=== PATIENT | female | born 1985 | race Caucasian/White ===

== ENCOUNTER 2018-12-14 08:30 | Emergency (ER) | payer MEDICAID | END 2018-12-14 09:58 | disposition home or self-care (01) | LOC: FTE 08:30 | DX: O26.891 Other specified pregnancy related conditions, first trimester (principal); R10.2 Pelvic and perineal pain; O99.89 Other specified diseases and conditions complicating pregnancy, childbirth and the puerperium; M25.571 Pain in right ankle and joints of right foot; Z3A.08 8 weeks gestation of pregnancy | CPT/HCPCS: 99282 ==

== ENCOUNTER 2019-07-30 21:23 | Inpatient (IN) | payer MEDICAID ==
[2019-07-30] MEDS ORDERED: OXYTOCIN 30 UNITS/LR 500 ML IV (23:00)
[2019-07-30] MEDS ORDERED: CARBOPROST 250 MCG INJ IM (23:00)
[2019-07-30] MEDS ORDERED: METHYLERGONOVINE 0.2 MG INJ IM (23:00)
[2019-07-30] MEDS ORDERED: MISOPROSTOL 200 MCG TAB PR (23:00)
[2019-07-30] MEDS: TERBUTALINE 1 MG/ML INJ SC (23:31)
[2019-07-30] MEDS: LACTATED RINGER'S 1,000 ML IV (23:47)
[2019-07-30 23:50] LABS: ADD MAN DIFF? NO
[2019-07-30 23:51] LABS: BASOPHILS % 0.2 % (0.0-2.0); EOSINOPHILS # 0.3 10^3/ul (0.0-0.5); EOSINOPHILS % 2.1 % (0.0-7.0); HEMATOCRIT 34.8 % (37.0-47.0); HEMOGLOBIN 11.9 g/dl (12.0-16.0); LYMPHOCYTES # 1.3 10^3/ul (0.8-2.9); LYMPHOCYTES % 10.6 % (15.0-51.0); MEAN CORPUSCULAR HEMOGLOBIN 31.2 pg (29.0-33.0); MEAN CORPUSCULAR HGB CONC 34.2 g/dl (32.0-37.0); MEAN CORPUSCULAR VOLUME 91.3 fl (82.0-101.0); MEAN PLATELET VOLUME 11.4 fl (7.4-10.4); MONOCYTE # 1.2 10^3/ul (0.3-0.9); MONOCYTES % 9.5 % (0.0-11.0); NEUTROPHIL # 9.4 10^3/ul (1.6-7.5); PLATELET COUNT 167 10^3/UL (140-415); RED BLOOD COUNT 3.81 10^6/ul (4.20-5.40); RED CELL DISTRIBUTION WIDTH 13.2 % (11.5-14.5)
[2019-07-30 23:51] LABS: WHITE BLOOD COUNT 12.2 10^3/ul (4.8-10.8)
[2019-07-31] MEDS: GUAIFENESIN 20 MG/ML 5ML CUP PO (00:01)
[2019-07-31] MEDS: TERBUTALINE 1 MG/ML INJ SC ×2 (00:04→04:47)
[2019-07-31] MEDS: LACTATED RINGER'S 1,000 ML IV ×2 (00:10→08:12)
[2019-07-31 00:11] LABS: INR 0.92; PROTIME 12.5 Sec (11.9-14.9)
[2019-07-31 00:12] LABS: PARTIAL THROMBOPLASTIN TIME 28.5 Sec (23.0-35.0)
[2019-07-31] MEDS: BUTORPHANOL 2 MG INJ IV (04:50)
[2019-07-31] MEDS ORDERED: LACTATED RINGER'S 1,000 ML IV (06:13)
[2019-07-31] MEDS ORDERED: LIDOCAINE 2% (SDV) 5 ML INJ (10:24)
[2019-07-31] MEDS ORDERED: OXYTOCIN 30 UNITS/LR 500 ML BAG IV (10:24)
[2019-07-31] MEDS ORDERED: FENTAnyl 50 MCG/ML VIAL (10:24)
[2019-07-31] MEDS ORDERED: EPHEDrine 25 MG/5 ML SYG (10:24)
[2019-07-31] MEDS ORDERED: PHENYLephrine (100 MCG/ML) 10ML SYG (10:24)
[2019-07-31] MEDS: OXYTOCIN 30 UNITS/LR 500 ML IV ×2 (11:06→15:31)
[2019-07-31] MEDS: CEFAZOLIN 2 GM/50 ML (PMX) 50 ML IVPB (11:27)
[2019-07-31] MEDS ORDERED: OXYTOCIN 30 UNITS/LR 500 ML IV (12:30)
[2019-07-31] MEDS ORDERED: METHYLERGONOVINE 0.2 MG INJ IM (12:30)
[2019-07-31] MEDS ORDERED: NA PHOSPHATE/BIPHOS 133 ML ENEMA PR (12:30)
[2019-07-31] MEDS ORDERED: MISOPROSTOL 200 MCG TAB PR (12:30)
[2019-07-31] MEDS ORDERED: CARBOPROST 250 MCG INJ IM (12:30)
[2019-07-31] MEDS: KETOROLAC 30 MG INJ IV ×2 (12:44→18:29)
[2019-07-31] MEDS ORDERED: NALBUPHINE HCL (10 MG/1 ML) INJ IV ×2 (13:00)
[2019-07-31] MEDS ORDERED: DIPHENHYDRAMINE 50 MG INJ IV ×2 (13:00)
[2019-07-31] MEDS ORDERED: TRIMETHOBENZAMIDE 100 MG/ML VIAL IM ×2 (13:00)
[2019-07-31] MEDS ORDERED: morphine 2 MG INJ IV ×3 (13:00)
[2019-07-31] MEDS ORDERED: HYDROmorphONE 0.5 MG/0.5 ML SYG IV (13:00)
[2019-07-31] MEDS ORDERED: KETOROLAC 30 MG INJ IV (13:00)
[2019-07-31] MEDS ORDERED: ONDANSETRON 4 MG INJ IV ×2 (13:00)
[2019-07-31] MEDS ORDERED: HYDROmorphONE 1 MG/ML SYG IV (13:00)
[2019-07-31] MEDS ORDERED: NALOXONE (0.4 MG/ML) INJ IV ×3 (13:00)
[2019-07-31] MEDS: IBUPROFEN 800 MG TAB PO ×2 (14:00→22:00)
[2019-07-31] MEDS: LANOLIN HPA 1 PKT TOP (14:09)
[2019-07-31] MEDS: HYDROmorphONE 0.5 MG/0.5 ML SYG IV (14:09)
[2019-07-31] MEDS: morphine 2 MG INJ IV (15:41)
[2019-07-31 16:21] LABS: RAPID PLASMA REAGIN NONREACTIVE (NR)
[2019-07-31] MEDS: HYDROCODONE/APAP (5/325) TAB PO (20:41)
[2019-08-01] MEDS: KETOROLAC 30 MG INJ IV ×2 (00:50→08:46)
[2019-08-01] MEDS: LACTATED RINGER'S 1,000 ML IV (00:50)
[2019-08-01] MEDS: HYDROmorphONE 0.5 MG/0.5 ML SYG IV ×2 (01:50→05:50)
[2019-08-01] MEDS: NACL 0.9% 3 ML SYG IV (10:17)
[2019-08-01] MEDS: IBUPROFEN 800 MG TAB PO ×2 (14:11→22:50)
[2019-08-01 16:20] LABS: ADD MAN DIFF? NO
[2019-08-01 16:21] LABS: WHITE BLOOD COUNT 12.6 10^3/ul (4.8-10.8)
[2019-08-01 16:21] LABS: BASOPHILS % 0.2 % (0.0-2.0); EOSINOPHILS # 0.2 10^3/ul (0.0-0.5); EOSINOPHILS % 1.3 % (0.0-7.0); HEMATOCRIT 30.7 % (37.0-47.0); HEMOGLOBIN 10.7 g/dl (12.0-16.0); LYMPHOCYTES # 0.9 10^3/ul (0.8-2.9); MEAN CORPUSCULAR HEMOGLOBIN 32.2 pg (29.0-33.0); MEAN CORPUSCULAR HGB CONC 34.9 g/dl (32.0-37.0); MEAN CORPUSCULAR VOLUME 92.5 fl (82.0-101.0); MONOCYTES % 8.1 % (0.0-11.0); NEUTROPHIL # 10.5 10^3/ul (1.6-7.5); NEUTROPHILS % 82.9 % (39.0-77.0); PLATELET COUNT 169 10^3/UL (140-415); RED BLOOD COUNT 3.32 10^6/ul (4.20-5.40); RED CELL DISTRIBUTION WIDTH 13.5 % (11.5-14.5)
[2019-08-01] MEDS: HYDROCODONE/APAP (5/325) TAB PO (17:35)
[2019-08-02] MEDS: HYDROCODONE/APAP (5/325) TAB PO ×3 (02:30→17:35)
[2019-08-02] MEDS: IBUPROFEN 800 MG TAB PO ×3 (05:49→21:41)
[2019-08-02] MEDS: MAGNESIUM HYDROXIDE 30ML CUP PO (21:41)
[2019-08-03] MEDS: HYDROCODONE/APAP (5/325) TAB PO ×3 (02:07→10:00)
[2019-08-03] MEDS: IBUPROFEN 800 MG TAB PO ×2 (06:04→13:16)
[2019-08-03] MEDS: MEASLES,MUMPS,RUBELLA VACCINE INJ SC* (09:00)
[2019-08-03] MEDS: DIPHTH/TET/ACEL PERTUSS (ADULT) 0.5 ML VIAL IM* (10:10)
== END 2019-08-03 14:00 | disposition home or self-care (01) | DRG 788 ==
LOC: OBT 21:23 → L-D 21:23 → PP1 07-31 13:34 → OBT 22:17 → L-D 22:17
PROVIDERS: Obstetrics & Gynecology
PROC: 10D00Z1 Extraction of Products of Conception, Low, Open Approach (ICD-10-PCS; principal; 2019-07-31 10:15)
PROC: 3E033VJ Introduction of Other Hormone into Peripheral Vein, Percutaneous Approach (ICD-10-PCS; 2019-07-31 10:15)
DX: O65.5 Obstructed labor due to abnormality of maternal pelvic organs (principal); O34.211 Maternal care for low transverse scar from previous cesarean delivery; Z3A.39 39 weeks gestation of pregnancy; Z37.0 Single live birth
CPT/HCPCS: 62322; 85025; 85610; 85730; 86592; 86850; 86900; 86901; 88302; 90715; 99464